=== PATIENT | female | born 1985 | race Caucasian/White ===

== ENCOUNTER 2016-08-21 17:52 | Emergency (ER) | payer OTHER ==
[2016-08-21 21:43] LABS: HEMOGLOBIN 12.6 gm/dl (12.3-15.3); RED BLOOD COUNT 4.4 M/UL (4.00-5.10)
[2016-08-21 21:59] LABS: BUN/CREATININE RATIO 39 (0-10)
== END 2016-08-22 02:52 | disposition home or self-care (01) ==
LOC: ER1 17:52
PROVIDERS: Emergency Medicine
DX: S13.9XXA Sprain of joints and ligaments of unspecified parts of neck, initial encounter (principal); R07.89 Other chest pain; R51 Headache; M62.82 Rhabdomyolysis; I10 Essential (primary) hypertension; F17.200 Nicotine dependence, unspecified, uncomplicated; X58.XXXA Exposure to other specified factors, initial encounter
CPT/HCPCS: 36415; 70450; 71010; 72125; 80053; 81001; 82550; 82553; 83874; 84484; 84703; 85025; 85379; 96374; 99284; J2405; J7030